=== PATIENT | female | born 1995 | race Caucasian/White ===

== ENCOUNTER → 2023-12-16 18:24 | Outpatient (REF) | payer BC, SELFPAY | LOC: MRI 18:24 | PROVIDERS: ATTENDING PHYSICIAN Psychiatry & Neurology Neurology; FAMILY PHYSICIAN Nurse Practitioner Family | DX: R90.82 White matter disease, unspecified (principal); Z82.0 Family history of epilepsy and other diseases of the nervous system; G43.119 Migraine with aura, intractable, without status migrainosus | CPT/HCPCS: 70553; A9575 ==

== ENCOUNTER → 2024-03-09 09:54 | Outpatient (REF) | payer BC, SELFPAY ==
[2024-03-09 10:44] LABS: % Basophils 0.6 % (0-2); % Eosinophils 0.7 % (0-6); % Immature Granulocytes 0.1 % (0-0.5); % Lymphocytes 27.1 % (20.5-51.1); % Monocytes 6.3 % (1.7-9.3); % Neutrophils 65.2 % (42.2-75.2); Absolute Eosinophils 0.1 10^3/uL (0-0.7); Absolute Lymphocytes 1.9 10^3/uL (1.2-3.4); Absolute Monocytes 0.5 10^3/uL (0.1-0.6); Absolute Neutrophils 4.7 10^3/uL (1.4-6.5); Hematocrit 39.9 % (37.0-47.0); Hemoglobin 13.6 g/dL (12.0-16.0); Mean Corp Hgb Conc. 34.1 g/dL (33.0-37.0); Mean Corpuscular Hgb 30.3 pg (27.0-31.0); Mean Corpuscular Volume 88.9 fL (81.0-99.0); Mean Platelet Volume 9.3 fL (7.4-10.4); Nucleated Red Blood Cells % 0 %; Platelet Count 330 10^3/uL (130-400); Red Blood Cell Count 4.49 10^6/uL (4.20-5.40); Red Cell Dist. Width 12.6 % (11.5-14.5); White Blood Cell Count 7.2 10^3/uL (4.8-10.8)
[2024-03-09 10:56] LABS: Erythrocyte Sed Rate 16 mm/hour (0-20)
[2024-03-09 11:05] LABS: ALT (SGPT) 32 U/L (0-35); AST (SGOT) 31 U/L (14-36); Albumin 4.6 g/dl (3.5-5.0); Alkaline Phosphatase 73 U/L (38-126); Blood Urea Nitrogen 16 mg/dl (7-17); Calcium 9.7 mg/dl (8.4-10.2); Carbon Dioxide 26 mmol/L (22-30); Chloride 102 mmol/L (98-107); Glucose 92 mg/dl (70-99); HDL Cholesterol 55 mg/dl; Iron 96 ug/dl (37-170); LDL Cholesterol, Calculated 121 mg/dl; Potassium 4.4 mmol/L (3.5-5.1); Sodium 142 mmol/L (135-145); Total Bilirubin 0.6 mg/dl (0.2-1.3); Total Cholesterol 193 mg/dl (50-199); Total Protein 7.5 g/dl (6.3-8.2); Triglyceride 86 mg/dl (10-149); Very Low Density Lipoprotein 17 mg/dl (0-30); eGFR > 60.00
[2024-03-09 11:15] LABS: Percent Saturation 29 % (20-50); Total Iron Binding Capacity 322 ug/dl (265-497)
[2024-03-09 11:21] LABS: Vitamin D, 25-OH*** 31.9 ng/mL (30-80)
[2024-03-09 11:38] LABS: TSH Reflex To Free T4 1.91 uIU/ml (0.47-4.68)
[2024-03-09 11:39] LABS: Ferritin 19.2 ng/ml (6.24-137)
[2024-03-09 12:11] LABS: Folate 15.4 ng/ml (2.76-20); Vitamin B12 336 pg/ml (239-931)
[2024-03-09 12:21] LABS: Glycohemoglobin (HgbA1c) 5.2 % (4.0-5.6)
== END ==
LOC: REG 09:54
PROVIDERS: ATTENDING PHYSICIAN Nurse Practitioner Family
DX: N92.0 Excessive and frequent menstruation with regular cycle (principal); F41.9 Anxiety disorder, unspecified; R45.86 Emotional lability; Z83.3 Family history of diabetes mellitus; E66.9 Obesity, unspecified; G43.909 Migraine, unspecified, not intractable, without status migrainosus; R53.83 Other fatigue; R79.89 Other specified abnormal findings of blood chemistry
CPT/HCPCS: 36415; 80053; 80061; 82306; 82607; 82728; 82746; 83036; 83540; 83550; 84443; 85025; 85652